=== PATIENT | female | born 1980 | race Two or more races ===

== ENCOUNTER 2016-11-15 05:23 | Day surgery (SDC) | payer BC ==
[2016-11-14 14:25] VITALS: BMI 28.9
--- NOTE | 2016-11-14 17:19 | PREOPHP ---
DATE OF ADMISSION: 11/15/2016 HISTORY OF PRESENT ILLNESS: This is a 36-year-old female 5, para 4, who has requested steri lization on the basis of multiparity. The alternatives to this, the benefits of sterilization, the risks and possible complications, as well as 1% failure rate of the procedure was explained to the p atient in detail in the office. She was allowed to ask questions. All her questions were answered to her satisfaction, and she signed the appropriate surgical informed consent. PAST MEDICAL HISTORY: The patient denies any medical problems. Denies cardiovascular disease, diab etes, renal disease, liver disease, thyroid disease, or neurological problems. MEDICATIONS: She is currently taking no medications. ALLERGIES: SHE IS ALLERGIC TO LATEX, BUT NO ALLERGY TO MEDICATIONS. FAMILY HISTORY: Entirely noncontributory. REVIEW OF SYSTEMS: A 12-point review of systems is noncontributory. PHYSICAL EXAMINATION: GENERAL: Well-developed and nourished, in no distress, alert and oriented x3. Height is 5 feet 3 i nches and a weight of 172 pounds. VITAL SIGNS: Showed temperature to be 98, blood pressure 107/74, respirations 16 per minute, the pu lse is 80 per minute, regular. HEENT: Within normal limits. Pupils are PERRLA. NECK: Supple. The thyroid is not palpable. BREASTS: Show no masses or lumps. CHEST: Shows the lungs to be clear to percussion and auscultation. HEART: Normal sinus rhythm without a murmur. ABDOMEN: Soft without organomegaly or hernias. PELVIC: Normal external genitalia. Vagina is normal. Cervix is also normal without lesions. Bima nual exam, the uterus small and firm. There are no adnexal masses present. EXTREMITIES: Within normal limits. NEUROLOGIC: Also normal. IMPRESSION: Multiparity. The patient desires sterilization. PLAN: The patient is to be admitted tomorrow 11/15/2016 for laparoscopic bilateral tubal ligation. Dictated By: VALERIE BARNETT/CASIMIRO Conf#: [id number] DID#: [id number]
[2016-11-15] VITALS (10 sets, daily range): BP systolic 102–119; BP diastolic 59–72; PULSE 64–78; RESP 12–18; Ht 160 cm; Wt 75.9 kg
[~2016-11-15] VITALS: Ht 160 cm; Wt 75.9 kg
[~2016-11-15 05:23] MED LIST: PRENAT PO
[2016-11-15] MEDS ORDERED: BUPIVACAINE 0.5%/EPI (SDV) 30 ML INJ ONE (06:59)
[2016-11-15] MEDS ORDERED: MIDAZOLAM 1 MG/ML 2 ML INJ ONE (07:35)
[2016-11-15] MEDS ORDERED: FENTAnyl 50 MCG/ML VIAL ONE (07:35)
[2016-11-15] MEDS ORDERED: LIDOCAINE 2% (SDV) 5 ML INJ ONE (08:21)
[2016-11-15] MEDS ORDERED: ROCURONIUM 50 MG INJ ONE (08:21)
[2016-11-15] MEDS ORDERED: PROPOFOL 20 ML ONE (08:21)
[2016-11-15] MEDS ORDERED: CEFAZOLIN 1 GM INJ ONE (08:22)
[2016-11-15] MEDS ORDERED: NEOSTIGMINE 3 MG/3 ML SYRINGE ONE (08:22)
[2016-11-15] MEDS ORDERED: GLYCOPYRROLATE 0.4 MG INJ ONE (08:22)
[2016-11-15] MEDS ORDERED: ONDANSETRON 4 MG INJ ONE (08:23)
[2016-11-15] MEDS ORDERED: LACTATED RINGER'S 1,000 ML IV SCH (08:28)
[2016-11-15] MEDS ORDERED: OXYCODONE/ACETAMINOPHEN (5/325) TAB PO PRN ×2 (08:30)
[2016-11-15] MEDS ORDERED: ACETAMINOPHEN 325 MG TAB PO PRN (08:30)
[2016-11-15] MEDS ORDERED: IBUPROFEN 600 MG TAB PO PRN (08:30)
[2016-11-15] MEDS ORDERED: morphine 2 MG INJ IV PRN (08:30)
[2016-11-15] MEDS ORDERED: ONDANSETRON 4 MG INJ IV PRN ×3 (08:30→10:00)
--- NOTE | 2016-11-15 08:32 | PD.PPDC ---
OPTICAL TECHNICIAN Discharge Instruction Diagnosis Final Diagnosis: MUltiparity Condition Patient Condition: Good Diet Diet: Resume Regular Diet Activity/Restrictions Activity: Normal Activity May Shower Restrictions: No Sexual Activity Nothing in the Vagina No [place] Wound/Drain Care Instructions Wound/Drain Care Instructions: Keep clean and dry Follow-up Follow-up with Physician: 1, Week/Weeks Return to clinic for WATER ATTENDANT Instructions: Fever greater than 101 Worsening abdominal pain Excessive Vaginal Bleeding More than 2 pads per hour Unable to tolerate diet Surgical Instructions: Incisional Drainage Incisional Redness VALERIE GRAHAM MD Nov 15, 2016 08:32
--- NOTE | 2016-11-15 08:56 | OPR ---
DATE OF OPERATION: 11/15/2016 PREOPERATIVE DIAGNOSIS: Multiparity. POSTOPERATIVE DIAGNOSIS: Multiparity. OPERATION PERFORMED: Laparoscopic bilateral tubal ligation. SURGEON: Valerie Leija MD ANESTHESIA: General. ANESTHESIOLOGIST: Dr. Araujo COMPLICATIONS: None. SPECIMENS: None. ESTIMATED BLOOD LOSS: None. PROCEDURE AND FINDINGS: With the patient under general anesthesia, laid on the table in the dorsal lithotomy position. Her abdomen was prepped with ChloraPrep and the perineum and vagina with Betadine and after 3 minutes she was draped in the usual sterile fashion for this procedure. A small 5 mm incision was done at the level of the umbilicus. This was infiltrated with 0.5 % Marcaine with epinephrine. Then, the Veress needle was inserted while we were tenting up the anterior abdominal wall. Once the tip of the needle was ascertained to be intraperitoneal by the hanging drop saline technique, it was then connected to CO2 insufflator. Good pneumoperitoneum was obtained. The needle was removed. A 5 mm trocar was placed in. Through this port, laparoscope with the Endocamera was inserted. The pelvic organs looked normal. There was no sign of infection or any pathology. This second port was installed under direct vision in the hypogastric area, 5 mm trocar. Through this second port, a Kleppinger clamp was inserted and 40 bishop was utilized to cauterize the tubes. The right tube was cauterized in the mid portion, half and half, through and through for about 1.5 cm. The same was done on the contralateral side. There was no bleeding, no complications. Pictures were taken for documentation. All the instruments were then removed from the patient 's abdomen as well as much CO2 as possible. The incisions were closed with 4-0 Monocryl. Band-Aids were applied, and the patient was taken to recovery room with all vital signs stable. EBL was negligible. Needle, sponge, and instrument count at the end of the procedure was correct twice. Dictated By: VALERIE BARNETT/CASIMIRO Conf#: [id number] DID#: [id number]
[2016-11-15] MEDS ORDERED: MEPERIDINE 25 MG INJ IV ONE (09:00)
[2016-11-15] MEDS ORDERED: FENTAnyl 50 MCG/ML VIAL IV PRN (10:00)
[2016-11-15] MEDS ORDERED: DIPHENHYDRAMINE 50 MG INJ IV PRN (10:00)
[2016-11-15] MEDS ORDERED: MEPERIDINE 25 MG INJ IV PRN (10:00)
== END 2016-11-15 11:26 | disposition home or self-care (01) ==
LOC: SDS 05:23
PROVIDERS: ATTEND Specialist
DX: Z30.2 Encounter for sterilization (principal)
CPT/HCPCS: 58670; 84703; 86850; 86900; 86901; J0690; J2175; J2250; J2270; J2405; J2710; J3010; Z7512; Z7610